=== PATIENT | male | born 1965 ===

== ENCOUNTER 2019-08-31 05:40 | Day surgery (SDC) | payer OTHER ==
[~2019-08-31 05:40] MED LIST: PERCOCET 5/3251 TAB PO; RECTICARE30 GM TP
== END 2019-08-31 15:20 | disposition home or self-care (01) ==
LOC: AMB-ENDOS 05:40
DX: K57.30 Diverticulosis of large intestine without perforation or abscess without bleeding (principal); K62.89 Other specified diseases of anus and rectum